=== PATIENT | female | born 1960 | race Caucasian/White ===

== ENCOUNTER 2019-07-16 10:20 | Emergency (ER) | payer MEDICAID ==
[~2019-07-16] VITALS: Ht 154.9 cm; Wt 82.9 kg
[~2019-07-16 10:20] MED LIST: AMLO10TA4 PO; FLUO-1 PO; LANS30CA56 PO; LEVO75TA7 PO; PENI500T2 PO; [UNRECOGNIZED DRUG - OTHER]
[2019-07-16] MEDS ORDERED: acetaminophen 325mg tablet PO ONE (11:25)
[2019-07-16] MEDS ORDERED: amLODIPine 5mg tablet PO ONE (11:25)
[2019-07-16] MEDS ORDERED: AMLO2.5T2 PO (11:28)
[2019-07-16] MEDS ORDERED: amLODIPine 2.5mg tablet PO ONE (11:35)
[2019-07-16 11:59] VITALS: BP 148/96
== END 2019-07-16 12:07 | disposition home or self-care (01) ==
LOC: ER 10:21
DX: I10 Essential (primary) hypertension (principal); R51 Headache; K21.9 Gastro-esophageal reflux disease without esophagitis; G89.29 Other chronic pain; F17.200 Nicotine dependence, unspecified, uncomplicated; Z90.710 Acquired absence of both cervix and uterus; Z98.890 Other specified postprocedural states; Z79.899 Other long term (current) drug therapy
CPT/HCPCS: 93005; 99283

== ENCOUNTER 2022-05-13 10:51 | Emergency (ER) | payer MEDICAID ==
[~2022-05-13] VITALS: Ht 152.4 cm; Wt 90.9 kg
[2022-05-13 11:41] LABS: BASOPHILS % (AUTO) 0.3 % (0-1); EOSINOPHILS # (AUTO) 0.1 X10'3 (0-0.9); EOSINOPHILS % (AUTO) 1.4 % (0-6); HEMATOCRIT 37.2 % (35.0-45.0); HEMOGLOBIN 12.2 g/dl (12.0-16.0); LYMPHOCYTES # (AUTO) 1.8 X10'3 (1.1-4.8); LYMPHOCYTES % (AUTO) 44.5 % (21-51); MEAN CORPUSCULAR HEMOGLOBIN 28.5 PG (27.0-31.0); MEAN CORPUSCULAR HGB CONC 32.8 g/dL (33.0-36.5); MEAN CORPUSCULAR VOLUME 86.8 FL (78-98); MEAN PLATELET VOLUME 8.4 FL (7.4-10.4); MONOCYTES # (AUTO) 0.2 X10'3 (0-0.9); MONOCYTES % (AUTO) 5.3 % (2-12); NEUTROPHILS # (AUTO) 1.9 X10'3 (1.8-7.7); NEUTROPHILS % (AUTO) 48.5 % (42-75); PLATELET COUNT 93 X10'3 (140-440); RED BLOOD COUNT 4.29 X10'6 (4.20-5.60); RED CELL DISTRIBUTION WIDTH 15.9 % (11.5-14.5)
[2022-05-13 11:50] LABS: ALANINE AMINOTRANSFERASE 74 U/L (12-78); ALBUMIN 3.7 G/DL (3.4-5.0); ALKALINE PHOSPHATASE 86 IU/L (46-116); ANION GAP 12 (8-16); ASPARTATE AMINO TRANSFERASE 63 U/L (10-37); BILIRUBIN,TOTAL 0.4 MG/DL (0.1-1.0); BLOOD UREA NITROGEN 17 MG/DL (7-18); BUN/CREATININE RATIO 21.5 (6.6-38.0); CALCIUM 9.1 MG/DL (8.5-10.1); CHLORIDE 109 MMOL/L (99-107); CREATININE 0.79 MG/DL (0.40-0.90); GLUCOSE 147 MG/DL (70-104); POTASSIUM 4.2 MMOL/L (3.5-5.1); SODIUM 145 MMOL/L (135-145); TOTAL CARBON DIOXIDE 24.1 MMOL/L (24-32); TOTAL PROTEIN 7.4 G/DL (6.4-8.2); eGFR 74 ML/MIN
[2022-05-13 15:31] VITALS: BP 136/53
== END 2022-05-13 15:33 | disposition home or self-care (01) ==
LOC: ER 10:51
DX: R07.9 Chest pain, unspecified (principal); M79.602 Pain in left arm; I10 Essential (primary) hypertension; K21.9 Gastro-esophageal reflux disease without esophagitis; G89.29 Other chronic pain; M54.9 Dorsalgia, unspecified
CPT/HCPCS: 36415; 71045; 80053; 84484; 85025; 93005; 99285

== ENCOUNTER 2023-01-24 08:53 | Day surgery (SDC) | payer MEDICAID ==
[2023-01-20 10:13] LABS: BASOPHILS # (AUTO) 0.1 X10'3 (0-0.2); BASOPHILS % (AUTO) 0.6 % (0-1); EOSINOPHILS % (AUTO) 0.1 % (0-6); LYMPHOCYTES # (AUTO) 2.4 X10'3 (1.1-4.8); LYMPHOCYTES % (AUTO) 25.6 % (21-51); MEAN CORPUSCULAR HEMOGLOBIN 29.2 PG (27.0-31.0); MEAN CORPUSCULAR HGB CONC 33.1 g/dL (33.0-36.5); MEAN CORPUSCULAR VOLUME 88.1 FL (78-98); MEAN PLATELET VOLUME 8.7 FL (7.4-10.4); MONOCYTES # (AUTO) 0.4 X10'3 (0-0.9); MONOCYTES % (AUTO) 3.9 % (2-12); NEUTROPHILS # (AUTO) 6.5 X10'3 (1.8-7.7); NEUTROPHILS % (AUTO) 69.8 % (42-75); PRE OP HEMATOCRIT 40.6 % (35.0-45.0); PRE OP HEMOGLOBIN 13.4 g/dL (12.0-16.0); PRE OP PLATELET COUNT 141 X10'3 (140-440); RED BLOOD COUNT 4.61 X10'6 (4.20-5.60); RED CELL DISTRIBUTION WIDTH 13.9 % (11.5-14.5)
[2023-01-20 10:39] LABS: ALBUMIN 3.9 G/DL (3.4-5.0); ALBUMIN/GLOBULIN RATIO 1.1 (1.1-1.5); ALKALINE PHOSPHATASE 69 IU/L (46-116); BLOOD UREA NITROGEN 18 MG/DL (7-18); CALCIUM 9.5 MG/DL (8.5-10.1); CHLORIDE 105 MMOL/L (99-107); CREATININE 0.72 MG/DL (0.40-0.90); PRE OP ALT 34 U/L (30-65); PRE OP ANION GAP 8 (8-16); PRE OP AST 26 U/L (10-37); PRE OP BILIRUB, TOTAL 0.5 MG/DL (0.0-1.0); PRE OP GLUCOSE 102 MG/DL (70-104); PRE OP SODIUM 141 MMOL/L (135-145); TOTAL CARBON DIOXIDE 27.7 MMOL/L (24-32); TOTAL PROTEIN 7.4 G/DL (6.4-8.2); eGFR 82 ML/MIN
[~2023-01-24] VITALS: Ht 154.9 cm; Wt 88.5 kg
[~2023-01-24 08:53] MED LIST changes: -AMLO10TA4 PO; +DULA1.5P SQ; -FLUO-1 PO; -LANS30CA56 PO; -LEVO75TA7 PO; +LIOT25TA12 PO; +LOSA100T58; +METH-603 PO; +MULT-1085 PO; +OMEP20TA43 PO; -PENI500T2 PO; +SYN0.088T PO; -[UNRECOGNIZED DRUG - OTHER]; +cefazolin 2gm/D5W 100mL 100 ML IV ONE; +famotidine 20mg tablet PO ONE; +ringers solution, lacted 1,000 ML IV SCH
[2023-01-24 09:25] VITALS: BP 140/73
[2023-01-24] MEDS ORDERED: LIDOcaine 0.5% (5mg/ml) 50ml vial ONE (10:19)
[2023-01-24] MEDS ORDERED: BUPIVAcaine/PF 2.5mg/ml (0.25%) 10ml vial ONE (12:09)
[2023-01-24] MEDS ORDERED: ondansetron/PF 4mg/2ml inj IV PRN (12:15)
[2023-01-24] MEDS ORDERED: hydrALAZINE 20mg/ml inj. IV PRN (12:15)
[2023-01-24] MEDS ORDERED: ringers solution, lacted 1,000 ML IV SCH (12:15)
[2023-01-24] MEDS ORDERED: meperidine/PF 25mg/ml syringe IV PRN ×3 (12:15)
[2023-01-24] MEDS ORDERED: morphine 4 MG/ML inj SYRINge IV PRN (12:15)
[2023-01-24] MEDS ORDERED: proCHLORperazine 10 MG/2 ml inj IV PRN (12:15)
[2023-01-24] MEDS ORDERED: morphine 2 MG/ML inj. syringe IV PRN (12:15)
[2023-01-24] MEDS ORDERED: labetalol 20mg/4ml (5mg/ml) syringe IV PRN (12:15)
[2023-01-24] MEDS ORDERED: fentaNYL/PF 50MCG/1 ML 2ML syringe ONE (12:20)
[2023-01-24] MEDS ORDERED: midazolam 1 mg/ML 2ml injection ONE (12:20)
[2023-01-24] MEDS ORDERED: propofol inj 20 ML IV ONE (12:42)
[2023-01-24] MEDS ORDERED: BUPIVAcaine/PF 2.5mg/ml (0.25%) 10ml vial IJ ONE (12:46)
[2023-01-24 12:57] VITALS: BP 137/82
--- NOTE | 2023-01-24 12:57 | NUR ---
Received from OR via [facility], accompanied by Anesthesiologist and report given by LAW Anesthesiologist. PATIENT AWAKE & ALERT, DENIES PAIN, V/S WNL, PIV 20G TO RIGHT HAND, LEFT WRIST DRESSING C/D/I. ICE AND ELEVATED LUE. Addendum: 01/24/23 at 1310 by Dom Conteh RN Amended: Links added.
[2023-01-24 13:00] VITALS: BP 149/75
[2023-01-24 13:10] VITALS: BP 152/75
[2023-01-24 13:20] VITALS: BP 155/81
--- NOTE | 2023-01-24 13:27 | NUR ---
ALL DISCHARGE CRITERIA HAS BEEN MET. VSS, PAIN AT A TOLERABLE LEVEL, VOIDING AND ABLE TO SAFELY AMBULATE AND TRANSFER SELF. IV TAKEN OUT WITHOUT ANY COMPLICATIONS. ALL DISCHARGE INSTRUCTIONS COVERED WITH PATIENT AND ALL QUESTIONS ANSWERED. PATIENT TAKEN OUT VIA WHEELCHAIR WITH ALL BELONGINGS TO PERSONAL VEHICLE WHERE FAMILY DROVE PATIENT HOME. Addendum: 01/24/23 at 1340 by Dom Conteh RN Amended: Links added.
== END 2023-01-24 13:27 | disposition home or self-care (01) ==
LOC: PAS 08:53
PROVIDERS: ATTEND Orthopaedic Surgery Hand Surgery
DX: G56.02 Carpal tunnel syndrome, left upper limb (principal); F41.9 Anxiety disorder, unspecified; M16.11 Unilateral primary osteoarthritis, right hip; G47.30 Sleep apnea, unspecified; I10 Essential (primary) hypertension; K21.9 Gastro-esophageal reflux disease without esophagitis; D64.9 Anemia, unspecified; E03.9 Hypothyroidism, unspecified; F32.A Depression, unspecified; K76.9 Liver disease, unspecified; E11.9 Type 2 diabetes mellitus without complications; E66.9 Obesity, unspecified; Z68.36 Body mass index [BMI] 36.0-36.9, adult; Z86.14 Personal history of Methicillin resistant Staphylococcus aureus infection; Z90.710 Acquired absence of both cervix and uterus; Z98.890 Other specified postprocedural states; Z79.899 Other long term (current) drug therapy; Z87.891 Personal history of nicotine dependence
CPT/HCPCS: 29848; 36415; 80053; 82948; 85025; 93005; A6222; J0690; J2250; J2704; J3010; J3490; J7030; J7120; Z7506; Z7512; A4215; A7000